=== PATIENT | male | born 1955 | race Caucasian/White ===

== ENCOUNTER → 2019-01-09 12:54 | Outpatient (CLI) | payer OTHER, SELFPAY ==
--- NOTE | 2019-01-09 10:48 | FLU_PTH ---
PATIENT: CLAR[facility] CORDERO [facility] U[facility][id number] AGE/SX: 69/M ROOM: RE01/09/[address]: Dr. Cooper Chamorro MD : [id number] BED: DIS: SPEC #: [id number] RECD: 01/09/19 12:05 STATUS: PK [place] #: [id number] JANET: 01/09/19 10:[address]: Cooper Chamorro DEPT: CYTOLOGY RECD BY: Salazar Nunez ENTERED: 01/09/19 13:24 SP TYPE: Fluid OTHR DR: No Primary Care Phys Tissues: Parotid gland, NOS Procedures: Special Stain Group II Surgery Specimen Level IV Cytospin Fluid HEADER OPERATION: Fine needle aspiration PRE-OP DIAGNOSIS: Right parotid gland mass TISSUE SUBMITTED: Right parotid gland mass for cytology DIAGNOSIS CYTOLOGY Fine needle aspiration, right parotid gland mass (cytospin and cell block): Macrophages consistent with benign cyst contents. AM:[place] 01/10/19 CYTOLOGY STUDY Slides are reviewed. CYTOLOGY GROSS Received is 30 ml of colorless hazy fluid labeled with the patient's name and and designated per the requisition as right parotid. Submitted for cytology preparation including cell block. / [place] 01/09/19 TC:5 CPT: 00937, 90964
== END ==
PROVIDERS: Referring Provider Otolaryngology; Visit Provider Otolaryngology
DX: K11.8 Other diseases of salivary glands (principal)
CPT/HCPCS: 88108; 88305; 88313